=== PATIENT | female | born 1975 | race Caucasian/White ===

== ENCOUNTER 2019-03-07 07:10 | Day surgery (SDC) | payer OTHER ==
[~2019-03-07] VITALS: Ht 149.9 cm; Wt 58.1 kg
[2019-03-07 07:49] LABS: UCG SCREEN NEGATIVE
[2019-03-07] MEDS ORDERED: LACTATED RINGERS 1,000 ML IV SCH (08:00)
[2019-03-07] MEDS ORDERED: LIDOCAINE HCL 1% 20ML VIAL (Pyxis) INJ ONE (08:45)
[2019-03-07] MEDS ORDERED: LEVO88TA7 PO (09:10)
[2019-03-07] MEDS ORDERED: BUPIVACAINE HCL 0.5% (5MG/ML) 50ML ONE (12:04)
[2019-03-07] MEDS ORDERED: BUPIVACAINE HCL/PF 0.25% (2.5MG/ML) 10ML ONE (12:40)
[2019-03-07] MEDS: HYDROMORPHONE HCL/PF 2MG/ML CPJ IV PRN ×2 (14:23→15:20)
[2019-03-07 15:20] VITALS: BP 123/78
== END 2019-03-07 16:10 | disposition home or self-care (01) ==
LOC: OR 07:10
PROVIDERS: ATTEND Obstetrics & Gynecology
DX: N75.0 Cyst of Bartholin's gland (principal); E03.9 Hypothyroidism, unspecified; Z98.51 Tubal ligation status; Z98.890 Other specified postprocedural states; Z79.899 Other long term (current) drug therapy
CPT/HCPCS: 56740; 81025; 88305; J1170; J3490